=== PATIENT | female | born 1950 | race Caucasian/White ===

== ENCOUNTER → 2017-02-05 | Outpatient (CLI) | payer MEDICARE, OTHER ==
[~2017-02-05] MED LIST: blood pressure
[2017-02-05 09:38] LABS: ALBUMIN 3.5 g/dL (3.4-5.0); ALBUMIN/GLOBULIN RATIO 1.1 (1.0-1.7); CALCIUM 8.9 mg/dL (8.5-10.1); CREATININE 0.9 mg/dL (0.6-1.0); GFR 62.6; POTASSIUM 3.8 mmol/L (3.5-5.1); TOTAL BILIRUBIN 0.5 mg/dL (0.2-1.0); TOTAL PROTEIN 6.6 g/dL (6.4-8.2)
== END | disposition home or self-care (01) ==
LOC: LAB 08:13
PROVIDERS: ATTEND Nurse Practitioner
DX: E78.5 Hyperlipidemia, unspecified (principal)
CPT/HCPCS: 36415; 80053; 80061

== ENCOUNTER → 2018-02-02 | Outpatient (CLI) | payer MEDICARE, OTHER ==
--- NOTE | 2018-02-02 14:49 | RAD ---
Examination: CT of the abdomen pelvis without contrast HISTORY: History of hematuria, right lower quadrant abdominal pain COMPARISON: 08/07/2015 TECHNIQUE: Axial CT images of the abdomen pelvis were performed without contrast and coronal sagittal reformats are performed Exposure: One or more of the following individualized dose reduction techniques were utilized for this examination: 1. Automated exposure control 2. Adjustment of the mA and/or kV according to patient size 3. Use of iterative reconstruction technique FINDINGS: The bibasilar lungs are clear. Minimal 3 mm partially visualized nodule identified in the right middle lobe of the lung. No evidence of free air identified in the abdomen. Evaluation of the solid organs is limited due to lack of IV contrast. The evaluation of bowel is limited due to lack of oral contrast. The visualized noncontrasted liver, spleen, adrenals grossly appears unremarkable. The gallbladder is minimally distended. The visualized stomach is mildly distended. The visualized pancreas grossly appears unremarkable. The small bowel is nondilated. The appendix is normal. Feces and gas noted in the colon. Urinary bladder is mildly distended. Moderate size left parapelvic cysts are again identified. There is a 1.2 cm calculus identified in the right renal pelvis. No evidence of hydronephrosis. Retroaortic left renal vein. Moderate aortic atherosclerosis. Mild to moderate degenerative changes thoracolumbar spine. IMPRESSION: 1. A 1.2 cm calculus identified in the right renal pelvis. 2. Moderate size left parapelvic cysts similar to prior exam. 3. Minimal 3 mm partially visualized nodule identified in the right middle lobe of the lung. Electronically signed by: Fredrick Lopez MD (02/02/2018 2:45 PM) [id number]
== END | disposition home or self-care (01) ==
LOC: CT 13:44
PROVIDERS: ATTEND Nurse Practitioner Family
DX: N94.89 Other specified conditions associated with female genital organs and menstrual cycle (principal); N20.0 Calculus of kidney; I70.0 Atherosclerosis of aorta; N32.89 Other specified disorders of bladder; E78.5 Hyperlipidemia, unspecified; R91.1 Solitary pulmonary nodule
CPT/HCPCS: 74176